=== PATIENT | female | born 1975 | race African-American/Black ===

== ENCOUNTER 2018-01-15 10:23 | Emergency (ER) | payer OTHER ==
[~2018-01-15] VITALS: Ht 157.5 cm; Wt 56.7 kg
--- NOTE | ~2018-01-15 | EKG ---
[address] [address] ELECTROCARDIOGRAM REPORT Name: FLY MOSQUEDA Scott Room #: [facility]#: [id number] Admission: 01/15/18 Attend Phys: Discharge: 01/15/18 Date of : 73 Report #: [id number] THIS REPORT FOR: //name// [facility] ED Test Date: 2018-01-15 Test Time: 11:18:57 Pat Name: FLY MOSQUEDA Department: Room: Gender: F Leasing Associate: LAURA : 1975 Requested By: Mayra Soler Order Number: [id number] MD: Devon Snowden Measurements Intervals [place] Rate: 73 P: 33 ID: [id number] QRS: 56 QRSD: 84 T: 18 QT: 388 QTc: 428 Interpretive Statements Sinus rhythm Compared to ECG 12/06/2010 18:55:01 Sinus arrhythmia no longer present T-wave abnormality no longer present Electronically Signed On 01-15-2018 14:48:59 EPIDEMIOLOGY INVESTIGATOR by Devon Snowden [email or web address] <ELECTRONICALLY SIGNED> By: Devon Snowden MD 01/15/18 1448 17 17 Devon Snowden MD /KACEY
[~2018-01-15 10:23] MED LIST: CIPROFLOXACIN500 M1 PO; ULTRAM 50MG TAB50 MG PO
[2018-01-15 11:20] LABS: HEMATOCRIT 34.5 % (37.0-47.0); HEMOGLOBIN 11.3 gm/dL (12.0-15.0); MCHC 32.9 g/dL (28.0-37.0); RBC 4.2 mil/uL (4.20-5.00); RDW 15.3 % (10.5-14.5); WBC 4.9 thou/uL (4.0-11.0)
[2018-01-15 11:22] LABS: URINE BILIRUBIN NEGATIVE (Negative); URINE BLOOD 1+ (Negative); URINE CLARITY CLOUDY; URINE COLOR YELLOW; URINE GLUCOSE-RANDOM* NEGATIVE (Negative); URINE KETONES NEGATIVE (Negative); URINE LEUKOCYTES-REFLEX 3+ (Negative); URINE NITRITE-REFLEX POSITIVE (Negative); URINE PROTEIN (DIPSTICK) NEGATIVE (Negative); URINE UROBILINOGEN 0.2 E.U./dl (0.2-1.0)
[2018-01-15 11:28] LABS: BACTERIA-REFLEX >30 Many /HPF (None Seen); SQUAMOUS 4-10 Moderate /LPF (0-3); URINE WBC-REFLEX >25 Many /HPF (0-5); WBC CLUMPS Moderate (None Seen)
[2018-01-15 11:29] LABS: URINE RBC 3-10 Few /HPF (0-2)
[2018-01-15 11:30] LABS: CASTS None Seen /LPF (None Seen); CRYSTALS None Seen /LPF (None Seen)
[2018-01-15 11:31] LABS: ANION GAP 8 mmol/L (7-16); BUN 10 mg/dL (7-18); CALCIUM 8.9 mg/dL (8.5-10.1); CHLORIDE 105 mmol/L (98-107); CO2 25 mmol/L (21-32); CREATININE 0.7 mg/dL (0.6-1.0); GLUCOSE 101 mg/dL (74-106); SODIUM 138 mmol/L (136-145)
[2018-01-15 11:32] LABS: POTASSIUM 4.9 mmol/L (3.5-5.1)
[2018-01-15 11:40] LABS: ALBUMIN 3.5 g/dL (3.4-5.0); SGOT 27 U/L (15-37); SGPT 18 U/L (30-65); TOTAL BILIRUBIN 0.4 mg/dL (<0.1-1.0); TOTAL PROTEIN 7.9 g/dL (6.4-8.2); TROPONIN-I <0.06 ng/mL (<0.06)
[2018-01-15] MEDS ORDERED: KEFLEX500 M1 PO (13:09)
[2018-01-15 13:40] VITALS: BP 129/84
== END 2018-01-15 13:41 | disposition home or self-care (01) ==
LOC: ER 10:23
PROVIDERS: Emergency Medicine
DX: I10 Essential (primary) hypertension (principal); N39.0 Urinary tract infection, site not specified; J45.909 Unspecified asthma, uncomplicated; K50.90 Crohn's disease, unspecified, without complications; Z91.013 Allergy to seafood; Z88.0 Allergy status to penicillin; Z88.2 Allergy status to sulfonamides; Z86.2 Personal history of diseases of the blood and blood-forming organs and certain disorders involving the immune mechanism

== ENCOUNTER 2018-10-11 12:11 | Emergency (ER) | payer OTHER ==
[~2018-10-11] VITALS: Ht 157.5 cm; Wt 55.8 kg
[~2018-10-11 12:11] MED LIST changes: +KEFLEX500 M1 PO
[2018-10-11 13:13] LABS: ABSOLUTE NEUTROPHILS 4.5 thou/uL (1.4-8.2); BASOPHILS 0.6 % (0.0-2.0); HEMOGLOBIN 12.4 gm/dL (12.0-15.0); LYMPHOCYTES 18.8 % (24.0-44.0); MCH 27.1 pg (26.0-34.0); MCHC 33.5 g/dL (28.0-37.0); MCV 80.9 fL (80.0-100.0); MONOCYTES 7.6 % (1.0-8.0); PLATELET COUNT 425 thou/uL (150-400); RBC 4.58 mil/uL (4.20-5.00); RDW 15.3 % (10.5-14.5); WBC 6.2 thou/uL (4.0-11.0)
[2018-10-11 13:27] LABS: ANION GAP 13 mmol/L (7-16); BUN 9 mg/dL (7-18); CALCIUM 9.1 mg/dL (8.5-10.1); CHLORIDE 102 mmol/L (98-107); CO2 24 mmol/L (21-32); CREATININE 0.7 mg/dL (0.6-1.0); GLUCOSE 88 mg/dL (74-106); POTASSIUM 3.9 mmol/L (3.5-5.1); SODIUM 139 mmol/L (136-145)
[2018-10-11 13:39] LABS: ALBUMIN 3.8 g/dL (3.4-5.0); SGOT 24 U/L (15-37); SGPT 18 U/L (30-65); TOTAL BILIRUBIN 0.6 mg/dL (<0.1-1.0); TOTAL PROTEIN 8.6 g/dL (6.4-8.2); TROPONIN-I <0.06 ng/mL (<0.06)
[2018-10-11 13:57] LABS: URINE BILIRUBIN NEGATIVE (Negative); URINE BLOOD TRACE (Negative); URINE CLARITY CLEAR; URINE COLOR YELLOW; URINE GLUCOSE-RANDOM* NEGATIVE (Negative); URINE KETONES NEGATIVE (Negative); URINE LEUKOCYTES-REFLEX TRACE (Negative); URINE NITRITE-REFLEX NEGATIVE (Negative); URINE PROTEIN (DIPSTICK) NEGATIVE (Negative); URINE UROBILINOGEN 0.2 E.U./dl (0.2-1.0)
[2018-10-11 15:45] VITALS: BP 133/89
--- NOTE | 2018-10-12 07:52 | EKG ---
[place] [address] [address] [place] [address] ELECTROCARDIOGRAM REPORT Name: FLY MOSQUEDA Room #: [facility]#: [id number] Admission: 10/11/18 Attend Phys: Discharge: 10/11/18 Date of : 73 Report #: [id number] THIS REPORT FOR: //name// [facility] ED Test Date: 2018-10-11 Test Time: 12:22:32 Pat Name: FLY MOSQUEDA Department: Room: Gender: F Gem Cutter: [place] : 1975 Requested By: Vickie Shi Order Number: [id number] MD: Clemente Quintana Measurements Intervals [place] Rate: 86 P: 70 TX: 152 QRS: -12 QRSD: 135 T: 42 QT: 428 QTc: 512 Interpretive Statements Sinus rhythm Probable left atrial enlargement Left bundle branch block Compared to ECG 01/15/2018 11:18:57 Left bundle-branch block now present Electronically Signed On 10-12-2018 7:51:48 CDT by Clemente Quintana [email or web address] <ELECTRONICALLY SIGNED> By: Clemente Quintana MD, [facility] 10/12/18 0751 1222 1222 Clemente Quintana MD, [facility] /EPI
== END 2018-10-11 16:02 | disposition home or self-care (01) ==
LOC: ER 12:11
PROVIDERS: Physician Assistant
DX: R07.89 Other chest pain (principal); J45.909 Unspecified asthma, uncomplicated; K50.90 Crohn's disease, unspecified, without complications; Z88.0 Allergy status to penicillin; Z91.013 Allergy to seafood; Z88.2 Allergy status to sulfonamides; Z86.2 Personal history of diseases of the blood and blood-forming organs and certain disorders involving the immune mechanism